=== PATIENT | male | born 1950 | race Caucasian/White ===

== ENCOUNTER 2018-09-04 05:53 | Emergency (ER) | payer MEDICARE ==
--- NOTE | 2018-09-04 05:56 | ER Report ---
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 He reports he's had a bad cold for 4-5 days. Tonight he is having severe difficulty breathing. He presents with a pulse ox 88% on room air. He notes a productive cough of some colored sputum. He's note no fevers. Patient denies chest pain. Patient denies leg swelling. Patient admits he has a history of COPD takes Symbicort. REVIEW OF SYSTEMS: Respiratory: As above Cardiovascular: No chest pain, no palpitations. Gastrointestinal: No vomiting, no abdominal pain. Musculoskeletal: No back pain. (HOWARD ABBOTT DO) Allergies: Coded Allergies: No Known Drug Allergies (Unverified , 09/04/18) Home Meds Reported Medications Lisinopril (LISINOPRIL) 20 Mg Tablet, 20 MG PO BID, TAB 09/04/18 Past Medical/Surgical History History of cardiac bypass, hyperlipidemia, hypertension, type II diabetes, diet controlled, formerly on insulin but lost significant weight and was discontinued. (HOWARD ABBOTT DO) Reviewed Nurses Notes: Yes Old Medical Records Reviewed: Yes (HOWARD ABBOTT DO) Constitutional Vital Sign - Last 24 Hours 09/04/18 09/04/18 09/04/18 09/04/18 05:53 05:56 05:57 06:00 Temp 97.4 Pulse ??? 96 Resp 22 B/P (MAP) 219/120 (153) 219/120 210/109 (142) Pulse Ox 88 O2 Delivery Room Air 09/04/18 09/04/18 09/04/18 09/04/18 06:08 06:15 06:23 06:25 Pulse 87 87 79 Resp 21 14 B/P (MAP) 196/93 (127) Pulse Ox 90 09/04/18 09/04/18 09/04/18 09/04/18 06:30 06:45 06:50 07:47 Resp 30 B/P (MAP) 166/63 (97) 185/79 (114) Pulse Ox 97 O2 Delivery Room Air 09/04/18 09/04/18 09/04/18 09/04/18 07:47 08:17 08:42 08:45 Pulse 79 Resp 14 B/P (MAP) 179/79 (112) 191/83 (119) 176/80 (112) 09/04/18 09/04/18 09/04/18 09/04/18 08:46 08:50 09:15 09:20 Pulse 85 88 Resp 17 B/P (MAP) 179/85 (116) Pulse Ox 92 95 O2 Flow Rate 2.0 09/04/18 09/04/18 09/04/18 09/04/18 09:30 09:35 09:45 09:50 Pulse 87 92 Resp 21 9 B/P (MAP) 199/97 (131) 191/87 (121) Pulse Ox 92 96 09/04/18 09/04/18 09/04/18 09/04/18 10:00 10:05 10:10 10:15 Pulse 96 92 Resp 8 13 B/P (MAP) 185/90 (121) 183/93 (123) Pulse Ox 95 94 09/04/18 10:25 Pulse 96 Resp 18 Pulse Ox 92 (DANIELLE GILBERT MD) Physical Exam General Appearance: The patient is alert, has no immediate need for airway protection and no current signs of toxicity. Mild respiratory distress, pulse ox 88% on room air, grossly elevated blood pressure 219/120. HEENT: Pupils equal and round no injection. TMs normal, oropharynx with gross redness, no exudate Respiratory: Chest is non tender, decreased breath sounds bilaterally, bibasilar rails, no expiratory wheezing, very poor air movement Cardiac: regular rate and rhythm, distant heart sounds Gastrointestinal: Abdomen is soft and non tender, no masses, bowel sounds normal. Musculoskeletal: Neck: Neck is supple and non tender. No JVD, no lymphadenopathy Extremities have full range of motion and are non tender. No edema or calf tenderness Skin: No rashes or lesions. DIFFERENTIAL DIAGNOSIS: After history and physical exam differential diagnosis was considered for shortness of breath including but not limited to pulmonary infectious process, COPD, asthma, pulmonary embolus and congestive heart failure. (HOWARD ABBOTT DO) Medical Decision Making Data Points Result Diagram: 09/04/1825 09/04/18 0625 Laboratory Hematology Test 09/04/18 06:25 09/04/18 07:27 09/04/18 08:30 Red Blood Count 5.51 M/uL (4.00-5.60) Mean Corpuscular Volume 84.9 fL (80.0-96.0) Mean Corpuscular Hemoglobin 28.8 pg (26.0-33.0) Mean Corpuscular Hemoglobin Concent 33.9 g/dL (32.0-36.0) Red Cell Distribution Width 14.2 % (11.5-14.5) Mean Platelet Volume 7.8 fL (7.2-11.1) Neutrophils (%) (Auto) 72.0 % (39.4-72.5) Lymphocytes (%) (Auto) 10.8 % (17.6-49.6) Monocytes (%) (Auto) 9.2 % (4.1-12.4) Eosinophils (%) (Auto) 6.7 % (0.4-6.7) Basophils (%) (Auto) 1.3 % (0.3-1.4) Nucleated RBC Relative Count (auto) 0.1 /100WBC Neutrophils # (Auto) 4.8 K/uL (2.0-7.4) Lymphocytes # (Auto) 0.7 K/uL (1.3-3.6) Monocytes # (Auto) 0.6 K/uL (0.3-1.0) Eosinophils # (Auto) 0.4 K/uL (0.0-0.5) Basophils # (Auto) 0.1 K/uL (0.0-0.1) Nucleated RBC Absolute Count (auto) 0.01 K/uL D-Dimer Quantitative (PE/DVT) 0.89 ug/ml (0-0.50) Sodium Level 138 mmol/L (137-145) Potassium Level 4.1 mmol/L (3.5-5.0) Chloride Level 100 mmol/L (98-107) Carbon Dioxide Level 26 mmol/L (22-30) Blood Urea Nitrogen 16 mg/dl (9-21) Creatinine 1.40 mg/dl (0.66-1.25) Glomerular Filtration Rate Calc 50.4 Random Glucose 206 mg/dl (75-110) Lactate 1.7 mmol/L (0.7-2.1) Calcium Level 9.1 mg/dl (8.4-10.2) Total Bilirubin 0.5 mg/dl (0.2-1.3) Aspartate Amino Transf (AST/SGOT) 16 U/L (0-35) Alanine Aminotransferase (ALT/SGPT) 32 U/L (0-56) Alkaline Phosphatase 57 U/L (0-126) B-Type Natriuretic Peptide 146 pg/ml (0-100) Total Protein 7.6 g/dl (6.3-8.2) Albumin 4.1 g/dl (3.5-5.0) Influenza Virus Type A (PCR) Negative (NEGATIVE) Influenza Virus Type B (PCR) Negative (NEGATIVE) Troponin I 0.017 ng/ml Chemistry Test 09/04/18 06:25 09/04/18 07:27 09/04/18 08:30 White Blood Count 6.7 k/uL (4.5-11.0) Red Blood Count 5.51 M/uL (4.00-5.60) Hemoglobin 15.9 g/dL (14.0-18.0) Hematocrit 46.8 % (42.0-52.0) Mean Corpuscular Volume 84.9 fL (80.0-96.0) Mean Corpuscular Hemoglobin 28.8 pg (26.0-33.0) Mean Corpuscular Hemoglobin Concent 33.9 g/dL (32.0-36.0) Red Cell Distribution Width 14.2 % (11.5-14.5) Platelet Count 197 K/uL (150-450) Mean Platelet Volume 7.8 fL (7.2-11.1) Neutrophils (%) (Auto) 72.0 % (39.4-72.5) Lymphocytes (%) (Auto) 10.8 % (17.6-49.6) Monocytes (%) (Auto) 9.2 % (4.1-12.4) Eosinophils (%) (Auto) 6.7 % (0.4-6.7) Basophils (%) (Auto) 1.3 % (0.3-1.4) Nucleated RBC Relative Count (auto) 0.1 /100WBC Neutrophils # (Auto) 4.8 K/uL (2.0-7.4) Lymphocytes # (Auto) 0.7 K/uL (1.3-3.6) Monocytes # (Auto) 0.6 K/uL (0.3-1.0) Eosinophils # (Auto) 0.4 K/uL (0.0-0.5) Basophils # (Auto) 0.1 K/uL (0.0-0.1) Nucleated RBC Absolute Count (auto) 0.01 K/uL D-Dimer Quantitative (PE/DVT) 0.89 ug/ml (0-0.50) Glomerular Filtration Rate Calc 50.4 Lactate 1.7 mmol/L (0.7-2.1) Calcium Level 9.1 mg/dl (8.4-10.2) Total Bilirubin 0.5 mg/dl (0.2-1.3) Aspartate Amino Transf (AST/SGOT) 16 U/L (0-35) Alanine Aminotransferase (ALT/SGPT) 32 U/L (0-56) Alkaline Phosphatase 57 U/L (0-126) B-Type Natriuretic Peptide 146 pg/ml (0-100) Total Protein 7.6 g/dl (6.3-8.2) Albumin 4.1 g/dl (3.5-5.0) Influenza Virus Type A (PCR) Negative (NEGATIVE) Influenza Virus Type B (PCR) Negative (NEGATIVE) Troponin I 0.017 ng/ml Coagulation Test 09/04/18 06:25 D-Dimer Quantitative (PE/DVT) 0.89 ug/ml (DANIELLE GILBERT MD) Microbiology Microbiology Date/Time Source Procedure Growth Status 09/04/18 06:43 Blood Peripheral Draw Blood Culture - Preliminary NO GROWTH SO FAR, SET LATE. REINCUBATED Resulted 09/04/18 06:25 Blood Peripheral Draw Blood Culture - Preliminary NO GROWTH SO FAR, SET LATE. REINCUBATED Resulted (DANIELLE GILBERT MD) EKG/Imaging EKG Interpretation 12 lead EK Rhythm: normal sinus rhythm at 84 bpm [place]: normal QRS: Prolonged QT ST segments: Diffuse nonspecific ST and T-wave changes, no old EKGs for comparison (HOWARD ABBOTT DO) Imaging FACILITY: [facility] - [place], [place] PATIENT NAME: Graham Dumont : 1950 MR: [id number] V: [id number] EXAM DATE: [id number] ORDERING PHYSICIAN: HOWARD ABBOTT TECHNOLOGIST: Location: [facility] [place] Patient: Graham Dumont : 1950 Visit/Account:[id number] Date of Sevice: 09/04/2018 INDICATION: . Shortness of breath and cough DATE: 09/04/2018 7:05 AM. TECHNIQUE: CHEST PA AND LAT COMPARISON: None FINDINGS: The lungs are mildly hyperinflated. Heart size is normal. Sternotomy wires are noted. No focal consolidation. No effusion. IMPRESSION: No focal pneumonia. Report Dictated By: Dequan Wallace MD at 09/04/2018 7:05 AM Report E-Signed By: Dequan Wallace MD at 09/04/2018 7:06 AM WSN:[id number] FACILITY: [facility] - [place], [place] PATIENT NAME: Graham Dumont : 1950 MR: [id number] V: [id number] EXAM DATE: [id number] ORDERING PHYSICIAN: DANIELLE GILBERT TECHNOLOGIST: Location: [facility] - [place] Patient: Graham Dumont : 1950 Visit/Account:[id number] Date of Sevice: 09/04/2018 CTA CHEST WW/O CNTR (PULM ANG) HISTORY: Soreness of breath ADDITIONAL HISTORY: None. TECHNIQUE: CTA chest with intravenous contrast. Axial imaging acquired following administration of IV contrast timed for maximum opacification of the pulmonary arterial vasculature. Slab 3-D MIP reconstructed images were also created for further evaluation and interpretation. Reconstruction of the source data set includes multiplanar 2-D in the sagittal and coronal planes and 3-D reconstructed coronal slab MIP series. 3-D images were created by the technologist. Dose Lowering Technique One of the following dose optimization techniques was utilized in the performance of this exam: Automated exposure control; adjustment of the mA and/or kV according to the patient's size; or use of an iterative reconstruction technique. Specific details can be referenced in the facility's radiology CT exam operational policy. CONTRAST: 75 mL Isovue-370 COMPARISON: Two-view chest today FINDINGS: Lungs/pleura: There is a 4 mm noncalcified nodule posterior aspect of the right middle lobe abutting the major fissure best seen on image 62 of series 5 there is an 8 x 4 mm noncalcified nodule anterior aspect right lower lobe abutting the major fissure best seen on image 49 is a 5 mm subpleural nodule lateral aspect right lower lobe best seen on image 46 is a 3 mm nodule posterior aspect right upper lobe best seen on image 35 two intrafissural nodules are identified in the superior most aspect of the major fissure on the right largest measuring 8 x 5 mm The thick band of airspace consolidation inferior lingula which may represent scarring or atelectasis. Linear stranding in the anterior left upper lobe also may represent scarring versus atelectasis. There is a focal area of pleural thickening along the posterior aspect of the left pulmonary apex best appreciated on image 16 of series 5. This focal peribronchial thickening seen in the medial aspect of the lingula. No evidence of pleural effusions Heart/vessels: There is a small intraluminal filling defect in the proximal subsegmental branch to the left lower lobe best seen on images 174 through 178 worrisome for tiny pulmonary embolus.. There are moderate atherosclerotic calcifications in the thoracic aorta and branch vessels including the coronary arteries. There is a moderate amount of mural thrombus scattered throughout the descending thoracic aorta. There are sternotomy sutures present. Mediastinum/lymph nodes: Negative. Visualized upper abdomen: Cholelithiasis although no evidence of biliary ductal dilatation. Along the posterior dome of the liver there is a 1.5 cm area of contrast-enhancement Bones/soft tissues: Spondylotic changes of the thoracic spine Additional findings: None IMPRESSION: There are multiple noncalcified right-sided pulmonary nodules ranging in size up to 8 x 5 mm For multiple nodules measuring 6 to 8 mm in size in a low risk patient, CT follow-up is recommended in 3-6 months, then consider CT at 18-24 months. For a high risk patient, CT follow-up is recommended at 3-6 months, then at 18-24 months. Areas of scarring versus atelectasis identified in the left upper lobe including the lingula, a focal area of pleural thickening along the posterior aspect the left pulmonary apex and focal peribronchial thickening in the medial aspect the lingula. All of these changes could be chronic although an acute process not totally excluded and clinical follow-up recommended There is a small intraluminal filling defect in the proximal subsegmental branches to the left lower lobe as described above which is worrisome for a very small pulmonary embolus Cholelithiasis1.5 cm area of contrast-enhancement along the posterior dome of the liver. Differential diagnosis would include an arterial enhancing mass or perfusion variant. This could be further evaluated with MR if of concern Extensive atherosclerotic changes Report Dictated By: Jayshree Garcia MD at 09/04/2018 9:37 AM Report E-Signed By: Jayshree Garcia MD at 09/04/2018 9:53 AM WSN:[id number] (DANIELLE GILBERT MD) ED Course/Re-evaluation ED Course Patient was admitted to an examination room. H&P was done. The dental diagnoses was considered. Patient refused to have a peripheral IV established. He would allow blood to be drawn. 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 He is unable to recall the exact reason. Turned Over The care of the patient was turned over to Dr.Kasarda Dr. Abbott I authorize my typed signature that I authenticated this report. (HOWARD ABBOTT DO) ED Course 09/04/2018 7:18:03 am Care patient at 7 AM this morning. 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 He states for the past 4 days he had some upper respiratory symptoms with cough and congestion and while driving to [place] had increasing shortness of breath. He does have a history of coronary artery disease status post CABG also history of COPD. Initial troponin was negative. Patient did receive a breathing treatment with some symptomatic improvement. My repeat exam revealed good airflow without wheezing both with regular respiration and forced exhalation. We will repeat x-ray. D-dimer was elevated. There are numerous explanations for this. Patient is initially unwilling to get an IV. We will screen with an influenza swab at this time. Patient did receive the influenza vaccine. Patient is agreeable to an IV for CT scan of the chest for ru ling out PE if did influenza swab is negative. Patient with GFR 50. Her prior after 2 CT scan we will give a bolus of fluid. Re-evaluation 09/04/2018 10:17:02 am patient improved after 2 albuterol/Atrovent nebulizer treatments. CT scan shows a very small subsegmental PE. Plan at this time will be to place on oral anticoagulation as patient is low risk and hemodynamically stable. 24 hours worth of treatment. I will write prescriptions for initial therapy over the 1st 7 days followed by the next 3 months. Patient is instructed to follow-up with his primary care provider within the next 2-4 weeks. Specifically to reevaluate for pulmonary embolism and duration of anticoagul ation therapy. Patient understands that if the symptoms worsen at any time he should proceed directly to the nearest emergency department or call 911. You may be able to save significantly on your prescription cost by either going to the [employer] web site and request a savings card or by going to [employer] and you may save 80-90% on your prescription costs Decision to Disposition Date: Sep 04, 2018 Decision to Disposition Time: 10:24 (DANIELLE GILBERT MD) Depart Departure Latest Vital Signs Vital Signs Date Time Temp Pulse Resp B/P (MAP) Pulse Ox O2 Delivery O2 Flow Rate FiO2 09/04/18 10:25 96 18 92 09/04/18 10:15 183/93 (123) 09/04/18 08:46 2.0 09/04/18 07:47 Room Air 09/04/18 05:57 97.4 (DANIELLE GILBERT MD) Impression: Primary Impression: Pulmonary embolism Additional Impression: Dyspnea Condition: Improved Disposition: HOME OR SELF-CARE Patient Instructions: Pulmonary Embolism (DC) Additional Instructions: Medication instructions: Eliquis 10 mg tab: You were given 24 hours worth of your initial treatment over the next 7 days which is: Eliquis 10 mg by mouth twice per day for 7 days. You were dispensed your 1st 24 hours worth of treatment. You were given your 1st dose in the emergency department and he should take your next dose sometime this evening. You were given 2 separate prescriptions, the 1st was for Eliquis 10mg tablets; you should begin taking these tomorrow September 05 and take as directed; which be one tablet by mouth twice per day for the next 6 days; your 2nd prescription was also for Eliquis but for 5 mg tablets. You should start taking this prescription after you complete the 7 days of the Eliquis 10mg twice per day. You will take these 5 mg tablets exactly like you were before which be once in the morning and once in the evening for the next 3 months at minimum. You will need to follow up with your primary care provider in the next 2-4 weeks to determine the length and duration of your anticoagulation therapy and for further workup of your pulmonary embolism. If any time you develop worsening shortness of breath, shortness of breath on exertion, chest pain or pressure you should either call 911 or proceed directly to the nearest emergency department. Problem Qualifiers Primary Impression: Pulmonary embolism Pulmonary embolism type: other Chronicity: acute Acute cor pulmonale presence: without acute cor pulmonale Qualified Codes: I26.99 - Other pulmonary embolism without acute cor pulmonale Additional Impression: Dyspnea Dyspnea type: dyspnea on exertion Qualified Codes: R06.09 - Other forms of dyspnea HOWARD ABBOTT DO Sep 04, 2018 05:56 DANIELLE GILBERT MD Sep 04, 2018 07:20
[2018-09-04] MEDS ORDERED: ALBUTEROL/IPRATROPIUM 3 ML NEB NEB ONE ×2 (06:00→07:40)
[2018-09-04] MEDS ORDERED: methylPREDNIS SUCC 125 MG/2ML IVP ONE (06:00)
[2018-09-04] MEDS ORDERED: LISI20TA29 PO (06:09)
[2018-09-04] MEDS ORDERED: predniSONE 20 MG TAB PO ONE (06:30)
--- NOTE | 2018-09-04 06:34 | EKG ---
FACILITY: [facility] - [place] PATIENT NAME: THOMAS ROCHE : [id number] MR: [id number] V: [id number] EXAM DATE: ORDERING PHYSICIAN: HOWARD MCBRIDE TECHNOLOGIST: SHARDA Test Reason : DYSNEA Blood Pressure : / mmHG Vent. Rate : 087 BPM Atrial Rate : 087 BPM P-R Int : 144 ms QRS Dur : 094 ms QT Int : 406 ms P-R-T Axes : 080 086 061 degrees QTc Int : 488 ms Normal sinus rhythm Nonspecific ST abnormality Prolonged QT Abnormal ECG Confirmed by KARLENE TRAMMELL ([id number]) on 09/04/2018 7:50:12 AM Referred By: RAE Confirmed By:KARLENE TRAMMELL
[2018-09-04 06:39] LABS: PLATELET COUNT, AUTOMATED 197 K/uL (150-450)
--- NOTE | 2018-09-04 07:09 | RADIOLOGY IMAGING REPORT ---
FACILITY: [facility] PATIENT NAME: Graham Dumont : 1950 MR: [id number] V: [id number] EXAM DATE: ORDERING PHYSICIAN: HOWARD MCBRIDE TECHNOLOGIST: Location: [facility] Patient: Graham Dumont : 1950 Visit/Account:[id number] Date of Sevice: 09/04/2018 INDICATION: . Shortness of breath and cough DATE: 09/04/2018 7:05 AM. TECHNIQUE: CHEST PA AND LAT COMPARISON: None FINDINGS: The lungs are mildly hyperinflated. Heart size is normal. Sternotomy wires are noted. No fo rajesh consolidation. No effusion. IMPRESSION: No focal pneumonia. Report Dictated By: Dequan Wallace MD at 09/04/2018 7:05 AM Report E-Signed By: Dequan Wallace MD at 09/04/2018 7:06 AM WSN:[id number]
[2018-09-04] MEDS ORDERED: ASPIRIN 325 MG TAB PO ONE (08:35)
[2018-09-04] MEDS ORDERED: NS(*) 0.9% 500 ML BAG 500 ML IV ONE (08:35)
[2018-09-04] MEDS ORDERED: NS(*) 0.9% 50 ML BAG 50 ML ONE (08:51)
[2018-09-04] MEDS ORDERED: IOPAMIDOL 76% 75 ML INFUS BTL 75 ML ONE (08:51)
--- NOTE | 2018-09-04 09:58 | RADIOLOGY IMAGING REPORT ---
FACILITY: [facility] - [place] PATIENT NAME: Graham uDmont : 1950 MR: [id number] V: [id number] EXAM DATE: ORDERING PHYSICIAN: DANIELLE GILBERT TECHNOLOGIST: Location: [facility] [place] Patient: Graham Dumont : 1950 Visit/Account:[id number] Date of Sevice: 09/04/2018 CTA CHEST WW/O CNTR (PULM ANG) HISTORY: Soreness of breath ADDITIONAL HISTORY: None. TECHNIQUE: CTA chest with intravenous contrast. Axial imaging acquired following administration of IV contrast timed for maximum opacification of the pulmonary arterial vasculature. Slab 3-D MIP yousuf nstructed images were also created for further evaluation and interpretation. Reconstruction of the [facility] data set includes multiplanar 2-D in the sagittal and coronal planes and 3-D reconstructed maurice nal slab MIP series. 3-D images were created by the technologist. Dose Lowering Technique One of the following dose optimization techniques was utilized in the performance of this exam: Autom ated exposure control; adjustment of the mA and/or kV according to the patient's size; or use of an i terative reconstruction technique. Specific details can be referenced in the facility's radiology C T exam operational policy. CONTRAST: 75 mL Isovue-370 COMPARISON: Two-view chest today FINDINGS: Lungs/pleura: There is a 4 mm noncalcified nodule posterior aspect of the right middle lobe abutting the major fissure best seen on image 62 of series 5 there is an 8 x 4 mm noncalcified nodule anterio r aspect right lower lobe abutting the major fissure best seen on image 49 is a 5 mm subpleural nodul e lateral aspect right lower lobe best seen on image 46 is a 3 mm nodule posterior aspect right upper lobe best seen on image 35 two intrafissural nodules are identified in the superior most aspect of t he major fissure on the right largest measuring 8 x 5 mm The thick band of airspace consolidation inferior lingula which may represent scarring or atelectasis . Linear stranding in the anterior left upper lobe also may represent scarring versus atelectasis. There is a focal area of pleural thickening along the posterior aspect of the left pulmonary apex bes t appreciated on image 16 of series 5. This focal peribronchial thickening seen in the medial aspect of the lingula. No evidence of pleural effusions Heart/vessels: There is a small intraluminal filling defect in the proximal subsegmental branch to t he left lower lobe best seen on images 174 through 178 worrisome for tiny pulmonary embolus.. There are moderate atherosclerotic calcifications in the thoracic aorta and branch vessels including the coronary arteries. There is a moderate amount of mural thrombus scattered throughout the descend ing thoracic aorta. There are sternotomy sutures present. Mediastinum/lymph nodes: Negative. Visualized upper abdomen: Cholelithiasis although no evidence of biliary ductal dilatation. Along t he posterior dome of the liver there is a 1.5 cm area of contrast-enhancement Bones/soft tissues: Spondylotic changes of the thoracic spine Additional findings: None IMPRESSION: There are multiple noncalcified right-sided pulmonary nodules ranging in size up to 8 x 5 mm For mult iple nodules measuring 6 to 8 mm in size in a low risk patient, CT follow-up is recommended in 3-6 mo nths, then consider CT at 18-24 months. For a high risk patient, CT follow-up is recommended at 3-6 m onths, then at 18-24 months. Areas of scarring versus atelectasis identified in the left upper lobe including the lingula, a focal area of pleural thickening along the posterior aspect the left pulmonary apex and focal peribronchia l thickening in the medial aspect the lingula. All of these changes could be chronic although an acu te process not totally excluded and clinical follow-up recommended There is a small intraluminal filling defect in the proximal subsegmental branches to the left lower lobe as described above which is worrisome for a very small pulmonary embolus Cholelithiasis1.5 cm area of contrast-enhancement along the posterior dome of the liver. Differenti al diagnosis would include an arterial enhancing mass or perfusion variant. This could be further ev aluated with MR if of concern Extensive atherosclerotic changes Report Dictated By: Jayshree Garcia MD at 09/04/2018 9:37 AM Report E-Signed By: Jayshree Garcia MD at 09/04/2018 9:53 AM WSN:[id number]
[2018-09-04] MEDS ORDERED: APIXABAN 2.5 MG TABLET PO SCH (10:10)
[2018-09-04 10:15] VITALS: BP 183/93
== END 2018-09-04 10:38 | disposition home or self-care (01) ==
LOC: ER 06:28
DX: I26.99 Other pulmonary embolism without acute cor pulmonale (principal); R06.09 Other forms of dyspnea
CPT/HCPCS: 36415; 71046; 71275; 83605; 83880; 84484; 85025; 85379; 87040; 87502; 93005; 94640; 96360; 99284; A9270; J7040; J7050; J7512; J7620; Q9967; 82040; 82247; 82310; 82374; 82435; 82565; 82947; 84075; 84132; 84155; 84295; 84450; 84460; 84520